=== PATIENT | male | born 1990 ===

== ENCOUNTER 2018-03-11 00:48 | Emergency (ER) | payer SELFPAY | END 2018-03-11 01:10 | disposition left against medical advice (07) | LOC: ER 00:50 | DX: S91.319A Laceration without foreign body, unspecified foot, initial encounter (principal); Z53.21 Procedure and treatment not carried out due to patient leaving prior to being seen by health care provider; W26.9XXA Contact with unspecified sharp object(s), initial encounter; Y93.89 Activity, other specified; Y92.89 Other specified places as the place of occurrence of the external cause; Y99.8 Other external cause status ==